=== PATIENT | female | born 1945 | race Caucasian/White ===

== ENCOUNTER → 2016-05-07 | Outpatient (CLI) | payer OTHER ==
--- NOTE | 2016-05-07 12:33 | REP ---
Left ring finger series: Five views. History: Ring finger pain. Recent loss of the nail. Findings: Five views of the left ring finger are presented. These demonstrate normal bones, joints, and soft tissues. No fracture is seen. Impression: Negative left ring finger series. Signed by Rolly German MD 05/07/2016 07:25 P
== END ==
LOC: M LRY 10:27
PROVIDERS: ATTEND Nurse Practitioner Family
DX: M79.645 Pain in left finger(s) (principal)
CPT/HCPCS: 73140; G0463

== ENCOUNTER → 2018-09-22 | Outpatient (CLI) | payer OTHER ==
--- NOTE | 2018-09-22 17:21 | REP ---
REASON: Pain along the medial aspect. PRIORS: None. There are degenerative changes seen throughout the foot. 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 Large plantar and retrocalcaneal heel spurs are present. There is some plantar soft-tissue calcifications of uncertain etiology. IMPRESSION: Chronic changes as described above. Electronically Signed by Rafal Vann DO 09/22/2018 05:39 P
== END ==
LOC: M LRY 16:14
PROVIDERS: ATTEND Physician Assistant
DX: M77.32 Calcaneal spur, left foot (principal)
CPT/HCPCS: 73630; 96372; G0463; J1885

== ENCOUNTER → 2022-08-16 | Outpatient (CLI) | payer OTHER, MEDICARE ==
[2022-08-16 09:12] LABS: HEMATOCRIT 41.8 % (36.0-47.0); HEMOGLOBIN 13.6 g/dl (12.0-15.5); MEAN CORPUSCULAR HGB CONC 32.5 g/dl (32.0-36.5); MEAN CORPUSCULAR VOLUME 89.1 fl (80.0-96.0); PLATELET COUNT, AUTOMATED 234 10^3/uL (150-450); RED BLOOD COUNT 4.69 10^6/uL (4.00-5.40); WHITE BLOOD COUNT 5.8 10^3/uL (4.0-10.0)
[2022-08-16 09:22] LABS: ERYTHROCYTE SEDIMENTATION RATE 30 mm/hr (0-30)
[2022-08-16 09:24] LABS: INR 0.97; PROTHROMBIN TIME 13.1 SECONDS (12.5-14.5)
[2022-08-16 09:42] LABS: ALBUMIN 4.1 G/DL (3.2-5.2); ALKALINE PHOSPHATASE 76 U/L (46-116); ALT/SGPT 22 U/L (7.0-40); AST/SGOT 20 U/L (<34); BILIRUBIN,TOTAL 0.7 MG/DL (0.3-1.2); BLOOD UREA NITROGEN 20 MG/DL (9-23); CALCIUM LEVEL 9.3 MG/DL (8.3-10.6); CARBON DIOXIDE LEVEL 23 MMOL/L (20-31); CHLORIDE LEVEL 108 MMOL/L (98-107); CREATININE FOR GFR 0.69 MG/DL (0.55-1.30); GLOMERULAR FILTRATION RATE > 60.0 (>39); GLUCOSE, FASTING 100 MG/DL (74-106); POTASSIUM SERUM 4.2 MMOL/L (3.5-5.1); SODIUM LEVEL 139 MMOL/L (136-145); TOTAL PROTEIN 7.1 G/DL (5.7-8.2)
== END ==
LOC: M RAD 07:53
PROVIDERS: ATTEND Orthopaedic Surgery
DX: Z01.818 Encounter for other preprocedural examination (principal); M17.12 Unilateral primary osteoarthritis, left knee; I51.7 Cardiomegaly